=== PATIENT | male | born 1995 | race Caucasian/White ===

== ENCOUNTER 2019-01-29 15:23 | Emergency (ER) | payer SELFPAY ==
[~2019-01-29] VITALS: Ht 172.7 cm; Wt 83.9 kg
[2019-01-29 17:05] VITALS: Ht 172.7 cm; Wt 83.9 kg
[2019-01-29 18:10] VITALS: BP 125/76
== END 2019-01-29 18:00 | disposition home or self-care (01) ==
LOC: ED 15:23
DX: F41.9 Anxiety disorder, unspecified (principal); T40.7X5A Adverse effect of cannabis (derivatives), initial encounter; I10 Essential (primary) hypertension; Y92.89 Other specified places as the place of occurrence of the external cause